=== PATIENT | female | born 2000 | race Caucasian/White ===

== ENCOUNTER 2022-07-09 13:40 | Emergency (ER) | payer SELFPAY ==
[2022-07-09 13:58] VITALS: RESP 18; BMI 19.5
[2022-07-09] MEDS ORDERED: SODIUM CHLORIDE 0.9% 1000 ML INFUS.BAG IV ONE ×2 (15:23→21:06)
[2022-07-09] MEDS ORDERED: DEXAMETHASONE SOD PHOSPHATE 4 MG/1 ML VIAL IVPUSH ONE ×2 (15:23)
[2022-07-09] MEDS ORDERED: ACETAMINOPHEN 1000 MG/100 ML BAG IVPB ONE (15:23)
[2022-07-09] MEDS ORDERED: DEXAMETHASONE SOD PHOSPHATE 10 MG/1 ML VIAL ONE ×2 (15:40→20:31)
[2022-07-09] MEDS ORDERED: ACETAMINOPHEN INJECTION 100 ML IVPB ONE (15:40)
[2022-07-09 15:52] LABS: BASO % 0.5 % (0-2.0); EOS % 0.4 % (0-4.5); HEMATOCRIT 38.6 % (32.4-45.2); MCH 29.2 pg (25.7-33.7); MCHC 33.6 g/dl (32.0-36.0); MEAN CELL VOLUME 86.8 fl (80-96); MEAN PLT VOLUME 8.4 fl (7.5-11.1); MONO % 8.3 % (3.8-10.2); NEUT % 76.8 % (42.8-82.8); PLATELET COUNT 399 10^3/uL (134-434); RBC 4.44 M/mm3 (3.60-5.2); RDW 13.8 % (11.6-15.6); WHITE BLOOD COUNT 14.8 K/mm3 (4.0-10.0)
[2022-07-09 16:49] LABS: THROAT:GRP A STREP NOT DETECTED (NOTDETECTED)
[2022-07-09 17:19] LABS: CALCIUM 9.6 mg/dL (8.5-10.1)
[2022-07-09 17:20] LABS: ALBUMIN 3.6 g/dl (3.4-5.0); BLOOD UREA NITROGEN 9.8 mg/dL (7-18)
[2022-07-09 17:24] LABS: CREATININE 0.6 mg/dL (0.55-1.3); TOT PROT 8.1 g/dl (6.4-8.2)
[2022-07-09 17:25] LABS: BILIRUBIN,TOTAL 0.3 mg/dL (0.2-1)
[2022-07-09] MEDS ORDERED: CLINDAMYCIN IVPB 300 MG in DEXTROSE 5%-WATER - 48 ML IVPB ONE (17:56)
[2022-07-09] MEDS ORDERED: KETOROLAC TROMETHAMINE 30 MG/1 ML VIAL IVPUSH ONE (18:13)
[2022-07-09] MEDS ORDERED: KETOROLAC TROMETHAMINE 30 MG/1 ML VIAL ONE (18:15)
[2022-07-09] MEDS ORDERED: CLINDAMYCIN 600MG PREMIX IVPB 600 MG/50 ML BAG IVPB ONE (18:17)
[2022-07-09] MEDS ORDERED: DEXAMETHASONE SOD PHOSPHATE 10 MG/1 ML VIAL IVPUSH ONE (20:29)
[2022-07-10 01:33] VITALS: BP 124/71; PULSE 79; TEMP 98.6
== END 2022-07-10 01:30 | disposition short-term general hospital (02) ==
LOC: JER 13:40
PROC: 3E033GC Introduction of Other Therapeutic Substance into Peripheral Vein, Percutaneous Approach (ICD-10-PCS; principal; 2022-07-09)
DX: R07.0 Pain in throat (principal)
CPT/HCPCS: 0241U-QW; 36415; 70491-TC; 80053; 84703; 85025; 87651; 99285-25; J1100; Q9967

== ENCOUNTER 2023-06-24 02:39 | Observation (INO) | payer SELFPAY ==
[2023-06-24] MEDS ORDERED: DEXAMETHASONE SOD PHOSPHATE 10 MG/1 ML VIAL IVPUSH ONE (02:44)
[2023-06-24] MEDS ORDERED: FAMOTIDINE 20 MG/50 ML IVPB 20 MG/50 ML MG IVPB ONE ×2 (02:45→02:58)
[2023-06-24 02:48] VITALS: BMI 21.4
[2023-06-24] MEDS ORDERED: DEXAMETHASONE SOD PHOSPHATE 10 MG/1 ML VIAL ONE (02:58)
[2023-06-24 05:47] LABS: POTASSIUM 3.8 mmol/L (3.5-5.1)
[2023-06-24 05:49] LABS: CALCIUM 8.7 mg/dL (8.5-10.1)
[2023-06-24 05:50] LABS: ALBUMIN 3.6 g/dl (3.4-5.0); BLOOD UREA NITROGEN 7.5 mg/dL (7-18)
[2023-06-24 05:53] LABS: CREATININE 0.6 mg/dL (0.55-1.3)
[2023-06-24 05:54] LABS: BILIRUBIN,TOTAL 0.3 mg/dL (0.2-1); TOT PROT 6.8 g/dl (6.4-8.2)
[2023-06-24 06:04] LABS: HEMATOCRIT 36.9 % (32.4-45.2); HEMOGLOBIN 12.5 GM/dL (10.7-15.3); MCH 30.4 pg (25.7-33.7); MCHC 33.8 g/dl (32.0-36.0); MEAN CELL VOLUME 89.8 fl (80-96); MEAN PLT VOLUME 9.1 fl (7.5-11.1); PLATELET COUNT 262 10^3/uL (134-434); RBC 4.11 M/mm3 (3.60-5.2); RDW 13.2 % (11.6-15.6); WHITE BLOOD COUNT 11.1 K/mm3 (4.0-10.0)
[2023-06-24 10:05] LABS: ANISOCYTOSIS 0; MACROCYTOSIS 0
[2023-06-24] MEDS: DEXAMETHASONE SOD PHOSPHATE 4 MG/1 ML VIAL IVPUSH SCH (10:22)
[2023-06-24] MEDS: FAMOTIDINE 20 MG TABLET PO SCH (10:22)
[2023-06-24] MEDS: ENOXAPARIN NA (PORCINE) 40 MG/0.4 ML DISP.SYRIN SQ SCH (10:22)
[2023-06-25 01:57] VITALS: RESP 18
[2023-06-25] MEDS ORDERED: ACETAMINOPHEN 325 MG TABLET (FP) PO ONE (04:23)
[2023-06-25 09:10] VITALS: BP 107/65; PULSE 92; TEMP 98.2
[2023-06-25] MEDS: ENOXAPARIN NA (PORCINE) 40 MG/0.4 ML DISP.SYRIN SQ SCH (09:12)
[2023-06-25] MEDS: DEXAMETHASONE SOD PHOSPHATE 4 MG/1 ML VIAL IVPUSH SCH (09:12)
[2023-06-25] MEDS: FAMOTIDINE 20 MG TABLET PO SCH (09:12)
[2023-06-25 09:33] LABS: BASO % 0.1 % (0-2.0); EOS % 0.3 % (0-4.5); HEMOGLOBIN 12.4 GM/dL (10.7-15.3); MCH 30.1 pg (25.7-33.7); MCHC 33.5 g/dl (32.0-36.0); MEAN CELL VOLUME 89.8 fl (80-96); NEUT % 75.6 % (42.8-82.8); PLATELET COUNT 260 10^3/uL (134-434); RBC 4.12 M/mm3 (3.60-5.2); RDW 13.2 % (11.6-15.6); WHITE BLOOD COUNT 5.1 K/mm3 (4.0-10.0)
[2023-06-25] MEDS ORDERED: OSELTAMIVIR PHOSPHATE 75 MG CAPSULE PO SCH (10:00)
[2023-06-25 11:38] LABS: POTASSIUM 3.6 mmol/L (3.5-5.1)
[2023-06-25 11:54] LABS: ALBUMIN 3.6 g/dl (3.4-5.0); BLOOD UREA NITROGEN 12.5 mg/dL (7-18)
[2023-06-25 11:55] LABS: CALCIUM 9.5 mg/dL (8.5-10.1)
[2023-06-25 11:58] LABS: BILIRUBIN,TOTAL 0.2 mg/dL (0.2-1); CREATININE 0.8 mg/dL (0.55-1.3); PHOSPHOROUS 3.9 mg/dL (2.5-4.9)
[2023-06-25 11:59] LABS: TOT PROT 7.1 g/dl (6.4-8.2)
== END 2023-06-25 13:10 | disposition home or self-care (01) ==
LOC: JER 02:39 → JERBED 08:10 → J6S 09:02
PROVIDERS: ADMIT Internal Medicine; ATTEND Internal Medicine
CPT/HCPCS: 0241U-QW; 36415; 80053; 83735; 84100; 84703; 85025; 93005; 93010; 99285-25; G0378; J1100